=== PATIENT | male | born 1980 | race Two or more races ===

== ENCOUNTER 2017-04-15 12:28 | Outpatient (CLI) | payer OTHER | END 2017-04-15 14:26 | disposition home or self-care (01) | LOC: MRI 12:28 | DX: M25.562 Pain in left knee (principal) | CPT/HCPCS: 73721 ==

== ENCOUNTER 2017-04-15 12:31 | Outpatient (CLI) | payer OTHER | END 2017-04-15 14:30 | disposition home or self-care (01) | LOC: RAD 12:31 | DX: M25.561 Pain in right knee (principal); M25.562 Pain in left knee ==